=== PATIENT | male | born 1985 | race Hispanic/Latino ===

== ENCOUNTER → 2023-10-16 09:14 | Outpatient (REF) | payer OTHER, SELFPAY ==
[2023-10-16 11:12] LABS: Blood Urea Nitrogen 20 mg/dl (9-20); Calcium 9.4 mg/dl (8.4-10.2); Carbon Dioxide 26 mmol/L (22-30); Chloride 106 mmol/L (98-107); Glucose 99 mg/dl (70-99); Potassium 3.8 mmol/L (3.5-5.1); Sodium 139 mmol/L (135-145); eGFR > 60.00
[2023-10-16 11:23] LABS: Vitamin D, 25-OH*** 21.9 ng/mL (30-80)
[2023-10-16 13:20] LABS: Glycohemoglobin (HgbA1c) 5.9 % (4.0-5.6)
== END ==
LOC: CLINIC 09:14
PROVIDERS: ATTENDING PHYSICIAN Nurse Practitioner Adult Health
DX: R73.03 Prediabetes (principal); E55.9 Vitamin D deficiency, unspecified
CPT/HCPCS: 36415; 80048; 82306; 83036

== ENCOUNTER → 2024-01-16 08:35 | Outpatient (REF) | payer OTHER, SELFPAY ==
[2024-01-16 11:25] LABS: Vitamin D, 25-OH*** 32.5 ng/mL (30-80)
== END ==
LOC: REG 08:35
PROVIDERS: ATTENDING PHYSICIAN Nurse Practitioner Adult Health
DX: E55.9 Vitamin D deficiency, unspecified (principal); R73.03 Prediabetes
CPT/HCPCS: 36415; 82306; 83036

== ENCOUNTER → 2024-04-16 08:40 | Outpatient (REF) | payer OTHER, SELFPAY ==
[2024-04-16 10:19] LABS: Blood Urea Nitrogen 19 mg/dl (9-20); Calcium 9.3 mg/dl (8.4-10.2); Carbon Dioxide 26 mmol/L (22-30); Chloride 104 mmol/L (98-107); Glucose 101 mg/dl (70-99); Potassium 4.1 mmol/L (3.5-5.1); Sodium 141 mmol/L (135-145); eGFR > 60.00
[2024-04-16 10:42] LABS: Glycohemoglobin (HgbA1c) 5.9 % (4.0-5.6)
== END ==
LOC: CLINIC 08:40
PROVIDERS: ATTENDING PHYSICIAN Nurse Practitioner Adult Health
DX: R73.03 Prediabetes (principal)
CPT/HCPCS: 36415; 80048; 83036

== ENCOUNTER → 2024-05-20 07:57 | Outpatient (REF) | payer OTHER, SELFPAY | LOC: CLINIC 07:57 | PROVIDERS: ATTENDING PHYSICIAN Nurse Practitioner Adult Health | DX: K11.20 Sialoadenitis, unspecified (principal) | CPT/HCPCS: 70492; Q9967 ==

== ENCOUNTER → 2024-11-07 07:33 | Outpatient (REF) | payer OTHER, SELFPAY ==
[2024-11-07 09:01] LABS: Blood Urea Nitrogen 18 mg/dl (9-20); Calcium 9.3 mg/dl (8.4-10.2); Carbon Dioxide 21 mmol/L (22-30); Chloride 110 mmol/L (98-107); Glucose 130 mg/dl (70-99); Sodium 143 mmol/L (135-145); eGFR > 60.00
[2024-11-07 10:33] LABS: Glycohemoglobin (HgbA1c) 6.2 % (4.0-5.6)
[2024-11-07 10:54] LABS: Vitamin D, 25-OH*** 30.7 ng/mL (30-80)
== END ==
LOC: CLINIC 07:33
PROVIDERS: ATTENDING PHYSICIAN Nurse Practitioner Adult Health
DX: R73.03 Prediabetes (principal); E55.9 Vitamin D deficiency, unspecified
CPT/HCPCS: 36415; 80048; 82306; 83036

== ENCOUNTER 2024-12-31 06:20 | Day surgery (SDC) | payer OTHER, SELFPAY ==
[2024-12-31 08:07] VITALS: BMI 32.3
[2024-12-31 08:08] VITALS: BMI 32.3
[2024-12-31 08:09] VITALS: BP 116/74
[2024-12-31] MEDS: TYLENOL 1000 MG PO (08:16)
[2024-12-31] MEDS: NORMOSOL-R/PLASMALYTE-A 1000 IV (08:18)
--- NOTE | 2024-12-31 15:58 | DOWNTIME ---
There was a Rapid Mobile Client Occasional Caregiver Downtime on 12/31/2024 from 1230 to 12/31/2024 at 1550. Downtime documentation of patient's care, including medication administrations, has been reconciled in the electronic record per guidelines. Refer to the
patient's paper chart under the miscellaneous tab to see printed paper medication records and downtime forms.
== END 2024-12-31 10:30 | disposition home or self-care (01) ==
LOC: SDS 06:20
PROVIDERS: ATTENDING PHYSICIAN Otolaryngology
DX: K11.5 Sialolithiasis (principal); K11.20 Sialoadenitis, unspecified
CPT/HCPCS: 42440; 88305; 88307; C9250

== ENCOUNTER → 2025-02-19 08:44 | Outpatient (REF) | payer OTHER, SELFPAY ==
[2025-02-19 10:31] LABS: ALT (SGPT) 60 U/L (0-50); AST (SGOT) 31 U/L (17-59); Albumin 4.7 g/dl (3.5-5.0); Alkaline Phosphatase 60 U/L (38-126); Blood Urea Nitrogen 18 mg/dl (9-20); Calcium 9.8 mg/dl (8.4-10.2); Carbon Dioxide 23 mmol/L (22-30); Chloride 111 mmol/L (98-107); Glucose 110 mg/dl (70-99); HDL Cholesterol 33 mg/dl; LDL Cholesterol, Calculated 85 mg/dl; Potassium 3.9 mmol/L (3.5-5.1); Sodium 140 mmol/L (135-145); Total Protein 7.6 g/dl (6.3-8.2); Very Low Density Lipoprotein 30 mg/dl (0-30); eGFR > 60.00
[2025-02-19 12:10] LABS: Glycohemoglobin (HgbA1c) 6.1 % (4.0-5.6)
== END ==
LOC: CLINIC 08:44
PROVIDERS: ATTENDING PHYSICIAN Nurse Practitioner Adult Health
DX: R73.03 Prediabetes (principal)
CPT/HCPCS: 36415; 80053; 80061; 83036

== ENCOUNTER → 2025-05-28 09:03 | Outpatient (REF) | payer OTHER, SELFPAY ==
[2025-05-28 10:20] LABS: Glycohemoglobin (HgbA1c) 6.2 % (4.0-5.9)
[2025-05-28 10:29] LABS: Vitamin D, 25-OH*** 29.6 ng/mL (30-80)
[2025-05-28 10:30] LABS: ALT (SGPT) 65 U/L (0-50); AST (SGOT) 36 U/L (17-59); Albumin 4.5 g/dl (3.5-5.0); Alkaline Phosphatase 59 U/L (38-126); Blood Urea Nitrogen 19 mg/dl (9-20); Calcium 9.4 mg/dl (8.4-10.2); Carbon Dioxide 25 mmol/L (22-30); Chloride 106 mmol/L (98-107); Glucose 102 mg/dl (70-99); Potassium 3.9 mmol/L (3.5-5.1); Sodium 135 mmol/L (135-145); Total Protein 7.6 g/dl (6.3-8.2); eGFR > 60.00
== END ==
LOC: CLINIC 09:03
PROVIDERS: ATTENDING PHYSICIAN Nurse Practitioner Adult Health
DX: R73.03 Prediabetes (principal); E55.9 Vitamin D deficiency, unspecified
CPT/HCPCS: 36415; 80053; 82306; 83036